=== PATIENT | male | born 1940 | race Caucasian/White ===

== ENCOUNTER 2017-07-19 04:45 | Inpatient (IN) | payer OTHER, MEDICAID ==
[~2017-07-19] VITALS: Ht 165.1 cm; Wt 78.5 kg
[2017-07-19] VITALS (11 sets, daily range): BP systolic 92–132; BP diastolic 45–66
[2017-07-19] MEDS ORDERED: ASPIRIN 81MG TABLET PO STA (05:00)
[2017-07-19] MEDS ORDERED: FUROSEMIDE 40MG/4ML VIAL IV STA (05:00)
[2017-07-19] MEDS ORDERED: ONDANSETRON HCL 4MG/2ML VIAL IV STA (05:00)
[2017-07-19 05:29] LABS: BASOPHILS % 0.2 % (0.0-2.0); EOSINOPHILS % 1.3 % (0.0-5.0); HEMATOCRIT. 37.5 % (42.0-52.0); HEMOGLOBIN. 12.9 g/dL (14.0-18.0); LYMPHOCYTES % 20.2 % (20.0-50.0); MEAN CORPUSCULAR HEMOGLOBIN 33.7 pg (28.0-32.0); MEAN CORPUSCULAR VOLUME 97.7 fL (80.0-94.0); MEAN PLATELET VOLUME 10.7 fl (7.4-10.4); MONOCYTES % 7.5 % (2.0-8.0); NEUTROPHILS % 70.8 % (40.0-76.0); PLATELET 150 x1000/uL (130-400); RED BLOOD CELL COUNT 3.84 mill/uL (4.7-6.1); RED CELL DISTRIBUTION WIDTH 13.4 % (11.6-14.6)
[2017-07-19 05:41] LABS: D-DIMER 0.71 mg/L FEU (<0.50); INR 1.1; PARTIAL THROMBOPLASTIN TIME 29.6 sec (23.4-31.0)
[2017-07-19 05:57] LABS: CARBON DIOXIDE 23 mEq/L (21-32); CHLORIDE 100 mEq/L (98-107); CREATINE KINASE 106 IU/L (39-308)
[2017-07-19 06:01] LABS: TROPONIN I 0.74 ng/mL (0.00-0.04)
[2017-07-19 06:07] LABS: BG BASE EXCESS -4.1 mmol/L (-2.0-2.0); BG BILEVEL POS AIRWAY PRESSURE 15/5; BG CARBOXYHEMOGLOBIN 0.1 % (0.5-1.5); BG DEOXYHEMOGLOBIN 2.1 % (0.0-5.0); BG FRACTION INSPIRED OXYGEN 30; BG HCO3 ACT 19.9 mmol/L (22.0-26.0); BG METHEMOGLOBIN 0.3 % (0.0-1.5); BG OXYGEN SATURATION 97.9 % (92.0-98.5); BG OXYHEMOGLOBIN 97.5 % (94.0-97.0); BG PCO2 32.9 mmHg (35.0-45.0); BG PH 7.399 (7.350-7.450); BG PO2 115.1 mmHg (75.0-100.0); BG SAMPLE SITE RIGHT RADIAL; BG TOTAL HEMOGLOBIN 12.4 g/dL (12.0-18.0); BG VENT MODE MASK - BIPAP
[2017-07-19] MEDS ORDERED: DOCUSATE SODIUM 100MG CAPSULE PO PRN (08:30)
[2017-07-19] MEDS ORDERED: DIPHENHYDRAMINE 50MG/ML VIAL IV PRN (08:30)
[2017-07-19] MEDS ORDERED: LORAZEPAM 2MG/ML CPJ IV PRN (08:30)
[2017-07-19] MEDS ORDERED: GUAIFENESIN 200MG/10ML SUGAR FREE UDC PO PRN (08:30)
[2017-07-19] MEDS ORDERED: FUROSEMIDE 100MG/10ML VIAL IVP SCH (08:30)
[2017-07-19] MEDS ORDERED: TRAMADOL 50MG TABLET PO PRN (08:30)
[2017-07-19] MEDS ORDERED: NA PHOS,M-B/NA PHOS,DI-BA ENEMA 118ML PR PRN (08:30)
[2017-07-19] MEDS ORDERED: ZOLPIDEM TARTRATE 5MG TABLET PO PRN (08:30)
[2017-07-19] MEDS ORDERED: ACETAMINOPHEN 325MG TABLET PO PRN (08:30)
[2017-07-19] MEDS ORDERED: NITROGLYCERIN 0.4MG TABLET SL SL PRN (08:30)
[2017-07-19] MEDS ORDERED: ONDANSETRON HCL 4MG/2ML VIAL IV PRN (08:30)
[2017-07-19] MEDS ORDERED: IPRATROPIUM/ALBUTEROL 0.5-3(2.5)MG/3ML NEB INH PRN (08:30)
[2017-07-19] MEDS ORDERED: LORAZEPAM 0.5MG TABLET PO PRN (08:53)
[2017-07-19] MEDS ORDERED: ASPIRIN 325MG EC TABLET PO SCH (09:00)
[2017-07-19] MEDS ORDERED: METF500T PO (10:09)
[2017-07-19] MEDS ORDERED: CARV6.2548 PO (10:09)
[2017-07-19] MEDS ORDERED: LOSA25TA3 PO (10:09)
[2017-07-19] MEDS ORDERED: ASPI-1159 PO (10:09)
[2017-07-19] MEDS ORDERED: TICA90TA PO (10:09)
[2017-07-19] MEDS ORDERED: GLIP10TA3 PO (10:09)
[2017-07-19] MEDS ORDERED: ATOR40TA70 PO (10:09)
[2017-07-19] MEDS: PANTOPRAZOLE SODIUM 40 MG/VIAL IV SCH (11:47)
[2017-07-19] MEDS: GUAIFENESIN 600MG ER TABLET PO SCH ×2 (11:48→21:26)
[2017-07-19] MEDS: ENOXAPARIN 80MG/0.8ML SYR SUBCUT SCH ×2 (11:49→21:26)
[2017-07-19] MEDS: TICAGRELOR 90 MG TABLET PO SCH ×2 (12:30→17:32)
[2017-07-19 13:26] LABS: CREATINE KINASE MB FRACTION 3.5 ng/mL (0.5-3.6)
[2017-07-19] MEDS: LOSARTAN POTASSIUM 25 MG TABLET PO SCH (13:37)
[2017-07-19 13:40] LABS: TROPONIN I 0.61 ng/mL (0.00-0.04)
[2017-07-19 14:24] LABS: *AMPHETAMINES SCREEN URINE NEGATIVE (NEGATIVE); *BARBITURATES SCREEN URINE NEGATIVE (NEGATIVE); *BENZODIAZEPINES SCREEN URINE NEGATIVE (NEGATIVE); *COCAINE SCREEN URINE NEGATIVE (NEGATIVE); CANNABINOID URINE SCREEN NEGATIVE (NEGATIVE); METHADONE URINE SCREEN NEGATIVE (NEGATIVE); OPIATES URINE SCREEN NEGATIVE (NEGATIVE); PHENCYCLIDINE URINE SCREEN NEGATIVE (NEGATIVE)
[2017-07-19] MEDS: SPIRONOLACTONE 25MG TABLET PO SCH (17:32)
[2017-07-19] MEDS: FUROSEMIDE 40MG/4ML VIAL IVP SCH (17:32)
[2017-07-19] MEDS: CARVEDILOL 6.25 MG TABLET PO SCH (21:00)
[2017-07-20] VITALS (9 sets, daily range): BP systolic 98–128; BP diastolic 43–60
[2017-07-20 00:32] LABS: CREATINE KINASE MB FRACTION 2.5 ng/mL (0.5-3.6)
[2017-07-20 00:37] LABS: TROPONIN I 0.75 ng/mL (0.00-0.04)
[2017-07-20] MEDS: SPIRONOLACTONE 25MG TABLET PO SCH ×2 (05:42→16:55)
[2017-07-20 06:34] LABS: BASOPHILS % 0.5 % (0.0-2.0); EOSINOPHILS % 1.3 % (0.0-5.0); HEMATOCRIT. 33.9 % (42.0-52.0); HEMOGLOBIN. 11.7 g/dL (14.0-18.0); LYMPHOCYTES % 31.3 % (20.0-50.0); MEAN CORPUSCULAR HEMOGLOBIN 33.9 pg (28.0-32.0); MEAN CORPUSCULAR VOLUME 98.1 fL (80.0-94.0); MEAN PLATELET VOLUME 10.7 fl (7.4-10.4); MONOCYTES % 11.3 % (2.0-8.0); NEUTROPHILS % 55.6 % (40.0-76.0); PLATELET 119 x1000/uL (130-400); RED BLOOD CELL COUNT 3.46 mill/uL (4.7-6.1); RED CELL DISTRIBUTION WIDTH 13.8 % (11.6-14.6)
[2017-07-20] MEDS: FUROSEMIDE 40MG/4ML VIAL IVP SCH (07:02)
[2017-07-20 07:10] LABS: CARBON DIOXIDE 26 mEq/L (21-32); CHLORIDE 102 mEq/L (98-107)
[2017-07-20] MEDS: CARVEDILOL 6.25 MG TABLET PO SCH (09:00)
[2017-07-20] MEDS ORDERED: POTASSIUM CHLORIDE 20MEQ TABLET SR PO SCH ×2 (09:00→09:30)
[2017-07-20] MEDS: LOSARTAN POTASSIUM 25 MG TABLET PO SCH (09:00)
[2017-07-20] MEDS ORDERED: ASPIRIN 81MG EC TABLET PO SCH (09:00)
[2017-07-20] MEDS: PANTOPRAZOLE SODIUM 40 MG/VIAL IV SCH (10:54)
[2017-07-20] MEDS: GUAIFENESIN 600MG ER TABLET PO SCH (10:54)
[2017-07-20] MEDS: TICAGRELOR 90 MG TABLET PO SCH ×2 (10:55→16:53)
== END 2017-07-20 17:30 | disposition short-term general hospital (02) | DRG 280 ==
LOC: ER 04:45 → 5EST 06:22 → EDBEDREQ 06:24 → EDBEDREQTM 06:24 → ENRESERV 06:59 → 5EST 08:41
PROVIDERS: ADMIT Internal Medicine; ATTEND Internal Medicine
PROC: 5A09357 Assistance with Respiratory Ventilation, Less than 24 Consecutive Hours, Continuous Positive Airway Pressure (ICD-10-PCS; principal; 2017-07-19)
DX: I21.4 Non-ST elevation (NSTEMI) myocardial infarction (principal); J96.00 Acute respiratory failure, unspecified whether with hypoxia or hypercapnia; I50.43 Acute on chronic combined systolic (congestive) and diastolic (congestive) heart failure; D69.6 Thrombocytopenia, unspecified; E87.1 Hypo-osmolality and hyponatremia; D63.8 Anemia in other chronic diseases classified elsewhere; I11.0 Hypertensive heart disease with heart failure; E11.9 Type 2 diabetes mellitus without complications; E78.00 Pure hypercholesterolemia, unspecified; I25.10 Atherosclerotic heart disease of native coronary artery without angina pectoris; I25.5 Ischemic cardiomyopathy; R74.0 Nonspecific elevation of levels of transaminase and lactic acid dehydrogenase [LDH]; I25.2 Old myocardial infarction; I35.0 Nonrheumatic aortic (valve) stenosis; N28.9 Disorder of kidney and ureter, unspecified; Z79.82 Long term (current) use of aspirin; Z82.49 Family history of ischemic heart disease and other diseases of the circulatory system; Z95.5 Presence of coronary angioplasty implant and graft; Z87.891 Personal history of nicotine dependence; Z79.899 Other long term (current) drug therapy
CPT/HCPCS: 36415; 36600; 71010; 80053; 80061; 80305; 82375; 82550; 82553; 82805; 82962; 83036; 83605; 83690; 83735; 83880; 84439; 84443; 84484; 85025; 85379; 85610; 85730; 87040; 93005; 93306; 93880; 93970; 94660; 96374; 96375; 99291; C9113; J1650; J1940; J2405; J8499